=== PATIENT | male | born 1945 | race Caucasian/White ===

== ENCOUNTER → 2016-06-02 | Outpatient (REF) ==
[~2016-06-02] MED LIST: ALL DAY ALLERGY10 MG PO; ALLEGRA180 MG PO; AMBIEN 10MG10 MG PO; ASPIR-LOW81 MG PO; ASPIRIN 32325 MG/TAB PO; ASPIRIN 81M81 MG/TA2 PO; ASPIRIN E.C. 8181 MG PO; ATARAX 25MG25 MG/TAB PO; CEPHALEXIN500 M1 PO; CLOPIDOGREL PO; COREG 3.123.125 MG/T PO; DEMADEX10 MG PO; FERROUS FUMARA325 MG PO; FERROUS SU325 MG/TAB PO; FERROUS SULFATE27 MG PO; FIBER TABLETS1 TAB PO; FISH OIL O1600 MG/5 PO; FLOMAX 0.40.4 MG/CAP PO; FOLIC ACID PO; GLUCOPHAGE XR500 M1 PO; GLUCOPHAGE500 MG/TAB PO; IRON CHELATED325 MG PO; LEVOTHYROXINE0.3 MG PO; LEVOXYL0.2 MG PO; LIPITOR40 MG PO; METHYLCELLULOSE PO; NITROQUICK0.4 MG SL; OMEGA 31000 MG PO; PRADAXA 150MG150 MG PO; PREVACID 30MG30 MG PO; PRILOSEC 20MG20 MG PO; PRINIVIL10 MG PO; QUININE PO; SYNTHROID0.2 MG/TAB PO; VITAMIN C500 MG PO; XARELTO20 MG PO; ZESTRIL 10MG10 MG PO; ZINC SULFATE PO; ZOCOR 10MG10 MG PO; ZOCOR 20MG20 MG PO; ZYRTEC 10MG10 MG PO
[2016-06-02 05:06] LABS: BASO # 0.1 (0.0-0.2); BASO % 0.7 % (0.0-2.0); EOS # 0.4 (0.0-0.7); EOS % 5.4 % (0-4.0); GRAN # 5.2 (1.4-6.5); HEMATOCRIT 38.9 % (42.0-52.0); HEMOGLOBIN 13.3 g/dl (13.5-18.0); LYMPH # 0.9 (1.2-3.4); LYMPH % 12.3 % (20.0-51.0); MEAN CELL VOLUME 83 fl (80.0-100.0); MEAN CORPUSCULAR HEMOGLOBIN 29 pg (27.0-31.0); MEAN CORPUSCULAR HGB CONC 34 g/dl (33.0-37.0); MEAN PLATELET VOLUME 10.4 fl (7.4-10.4); MONO # 0.6 (0.1-0.6); MONO % 8.3 % (1.7-9.3); PLATELET COUNT 114 K/mm3 (130-400); RED BLOOD COUNT 4.67 M/mm3 (4.20-5.60); WHITE BLOOD COUNT 7.1 K/mm3 (4.8-10.8)
== END ==
LOC: ZMSC 04:57
PROVIDERS: Urology
DX: Z01.89 Encounter for other specified special examinations (principal)

== ENCOUNTER → 2016-07-01 | Outpatient (CLI) | payer MEDICARE, OTHER | LOC: COL.LAB 09:52 → COL.RAD 09:52 | DX: R39.12 Poor urinary stream (principal); Z96.653 Presence of artificial knee joint, bilateral | CPT/HCPCS: A9503; Q9967 ==